=== PATIENT | female | born 1960 | race Caucasian/White ===

== ENCOUNTER 2016-10-12 06:46 | Emergency (ER) | payer BC ==
[2016-10-12 08:00] LABS: RBC URINE < 1 /hpf (0-3); URINE BACTERIA RARE (<OCC); URINE BILIRUBIN NEGATIVE (NEGATIVE); URINE BLOOD NEGATIVE (NEGATIVE); URINE COLOR Yellow (YELLOW); URINE GLUCOSE (UA) NORMAL (Normal); URINE KETONE NEGATIVE (NEGATIVE); URINE LEUKOCYTE ESTERASE NEG Leu/uL (Negative); URINE PROTEIN NEGATIVE (NEGATIVE); URINE UROBILINOGEN NORMAL mg/dL (0.2-1.0); WBC URINE < 1 /hpf (0-5)
[2016-10-12] MEDS ORDERED: Oxycodone/Acetaminophen 5/325 mg Tab PO STA (08:21)
--- NOTE | 2016-10-12 08:22 | RAD ---
PROCEDURE: Radiographs of the Lumbar Spine. HISTORY: pain COMPARISON: None available. FINDINGS: BONES: Alignment appears satisfactory. No listhesis. No acute displaced fracture identified. Mild degenerative changes including tiny anterior osteophytes. Facet hypertrophy. DISC SPACES: Unremarkable. OTHER FINDINGS: Atherosclerotic calcifications of the aorta. Right upper quadrant surgical clips. IMPRESSION: No acute displaced fracture or subluxation identified.
--- NOTE | 2016-10-12 08:40 | C.PDOC ---
Time Seen by Provider: 10/12/16 07:08 Chief Complaint (Nursing): Back Pain Past Medical History Vital Signs: Last Vital Signs Temp 98.5 F 10/12/16 07:06 Pulse 64 10/12/16 07:06 Resp 17 10/12/16 07:06 BP 125/75 10/12/16 07:06 Pulse Ox 99 10/12/16 07:06 - Medical History PMH: HTN, Hypercholesterolemia, Hypothyroidism Denies: Crohn's Disease, Diverticulitis, Gastritis, Gall Bladder Disease, HIV , Pancreatitis, Chronic Kidney Disease Surgical History: Back Surgery - [facility] Procedures COMMON DUCT EXPLORATION (07/17/14) ENDOSCOPIC REMOVAL OF STONE(S) FROM BILIARY TRACT (07/17/14) ENDOSCOPIC SPHINCTEROTOMY AND PAPILLOTOMY (07/17/14) INTRAOPER CHOLANGIOGRAM (07/17/14) LAPAROSCOPIC CHOLECYSTECTOMY (07/17/14) Family History: States: Unknown Family Hx - Social History Hx Tobacco Use: No Hx Alcohol Use: No Hx Substance Use: No - Immunization History Hx Tetanus Toxoid Vaccination: No Hx Influenza Vaccination: No Hx Pneumococcal Vaccination: No ED Course And Treatment O2 Sat by Pulse Oximetry: 99 Disposition - Disposition Referrals: Arpit Garcia MD [Primary Care Provider] - Forms: [employer] (T[place]isian)
--- NOTE | 2016-10-12 08:42 | C.PDOC ---
History Of Present Illness 55 year old female presents to the ED with complaints of right sided back pain exacerbated by movement, specifically when sitting, that radiates to the right leg for two days. Patient notes two days ago she lifted a heavy box and began to feel pain that evening. She denies trauma, history of kidney stones, taking medications today, urinary or bowel incontinence, dysuria, urinary frequency, or changes in sensation. Time Seen by Provider: 10/12/16 07:08 Chief Complaint (Nursing): Back Pain History Per: Patient History/Exam Limitations: no limitations Onset/Duration Of Symptoms: Days (2 days ) Current Symptoms Are (Timing): Still Present Quality Of Discomfort: "Pain" Previous Symptoms: None Associated Symptoms: None Exacerbating Factor(s): Movement, Sitting Recent travel outside of the [place]: No Past Medical History Reviewed: Historical Data, Nursing Documentation, Vital Signs Vital Signs: Last Vital Signs Temp 98.4 F 10/12/16 09:18 Pulse 68 10/12/16 09:18 Resp 16 10/12/16 09:18 BP 128/70 10/12/16 09:18 Pulse Ox 100 10/12/16 09:18 - Medical History PMH: HTN, Hypercholesterolemia, Hypothyroidism Surgical History: Back Surgery - [facility] Procedures COMMON DUCT EXPLORATION (07/17/14) ENDOSCOPIC REMOVAL OF STONE(S) FROM BILIARY TRACT (07/17/14) ENDOSCOPIC SPHINCTEROTOMY AND PAPILLOTOMY (07/17/14) INTRAOPER CHOLANGIOGRAM (07/17/14) LAPAROSCOPIC CHOLECYSTECTOMY (07/17/14) Family History: States: Unknown Family Hx - Social History Hx Tobacco Use: No Hx Alcohol Use: No Hx Substance Use: No - Immunization History Hx Tetanus Toxoid Vaccination: No Hx Influenza Vaccination: No Hx Pneumococcal Vaccination: No Review Of Systems Constitutional: Negative for: Fever, Chills Cardiovascular: Negative for: Chest Pain, Palpitations Respiratory: Negative for: Cough, Shortness of Breath Gastrointestinal: Negative for: Nausea, Vomiting, Abdominal Pain, Diarrhea Genitourinary: Negative for: Frequency, Incontinence Musculoskeletal: Positive for: Back Pain, Leg Pain Neurological: Negative for: Weakness, Numbness Physical Exam - Physical Exam Appears: Non-toxic, No Acute Distress Skin: Warm, Dry Head: Atraumatic, Normacephalic Eye(s): bilateral: Normal Inspection, EOMI Nose: Normal Oral Mucosa: Moist Neck: Normal ROM, Supple Chest: Symmetrical, No Deformity Cardiovascular: Rhythm Regular, No Murmur Respiratory: Normal Breath Sounds, No Rhonchi, No Wheezing Gastrointestinal/Abdominal: Soft, No Tenderness, No Distention, No Guarding, No Rebound Back: No CVA Tenderness, No Vertebral Tenderness, Paraspinal Tenderness (Right sided paralumbar tenderness ) Extremity: Normal ROM, No Tenderness, No Pedal Edema, No Calf Tenderness, Capillary Refill (good capillary refill, less than two seconds ), No Deformity, No Swelling Extremity: Bilateral: Normal Color And Temperature, Normal ROM Pulses: Left Dorsalis Pedis: Normal, Right Dorsalis Pedis: Normal Neurological/Psych: Oriented x3, Normal Speech, Normal Cognition, Normal Motor, Normal Sensation Gait: Steady ED Course And Treatment O2 Sat by Pulse Oximetry: 99 (room air ) Progress Note: Patient was given Toradol and Flexeril. On resassesment pateint noted minimal improvement. Percocet was ordered and given. Patient is resting comfortably, with improvement of back pain. Patient remains afebrile, with no bony tenderness, extremity numbness or weakness, or abdominal pain. Patient is ambulatory in the emergency department with no signs of discomfort. Patient was advised to follow up with physician/clinic in 1-2 days Reevaluation Time: 09:00 Reassessment Condition: Improved Disposition - Disposition Referrals: Arpit Garcia MD [Primary Care Provider] - Disposition: HOME/ ROUTINE Disposition Time: 08:50 Condition: STABLE Additional Instructions: Follow up with your primary medical doctor or clinic in 2-5 days for further evaluation. Take medications as prescribed. Return to the emergency department at any time if symptoms persist or worsen. Prescriptions: Cyclobenzaprine [Cyclobenzaprine HCl] 10 mg PO TID #20 tab Naproxen [Naprosyn] 1 tab PO BID PRN #20 tab PRN Reason: Pain Instructions: Acute Low Back Pain (ED) Forms: [employer] (Citizen Of [place]) - Clinical Impression Clinical Impression: Low back pain - Scribe Statement The provider has reviewed the documentation as recorded by the Scribe Whitney Guevara All medical record entries made by the Scribe were at my direction and personally dictated by me. I have reviewed the chart and agree that the record accurately reflects my personal performance of the history, physical exam, medical decision making, and the department course for this patient. I have also personally directed, reviewed, and agree with the discharge instructions and disposition.
[2016-10-12] MEDS ORDERED: Oxycodone/Acetaminophen 5/325 mg Tab ONE (08:44)
[2016-10-12 09:19] VITALS: BP 128/70; PULSE 68; RESP 16; TEMP 98.4
[2016-10-12 13:55] VITALS: O2SAT 99
== END 2016-10-12 09:18 | disposition home or self-care (01) ==
LOC: C.ER 06:46 → SUPCPDRO 06:46 → C.ER 09:18
DX: M54.5 Low back pain (principal)
CPT/HCPCS: 72100; 81001; 96372; 99284; J1885

== ENCOUNTER 2017-02-02 14:50 | Emergency (ER) | payer BC ==
[2017-02-02 14:56] VITALS: BP 122/79; PULSE 57; RESP 16; TEMP 97.9; O2SAT 96
--- NOTE | 2017-02-02 15:43 | C.PDOC ---
History Of Present Illness 56 yr old female presents to the ER with complaints of left ear pain and muffled hearing since morning. Patient states she is s/p cold which has improved. Denies fever, ear discharge, neck pain, headache or dizziness. Time Seen by Provider: 02/02/17 14:59 Chief Complaint (Nursing): ENT Problem History Per: Patient History/Exam Limitations: None Onset/Duration Of Symptoms: Days (1) Past Medical History Reviewed: Historical Data, Nursing Documentation, Vital Signs Vital Signs: Last Vital Signs Temp 97.9 F 02/02/17 14:53 Pulse 57 L 02/02/17 14:53 Resp 16 02/02/17 14:53 BP 122/79 02/02/17 14:53 Pulse Ox 96 02/02/17 15:43 - Medical History PMH: HTN, Hypercholesterolemia, Hypothyroidism Surgical History: Back Surgery - [facility] Procedures COMMON DUCT EXPLORATION (07/17/14) ENDOSCOPIC REMOVAL OF STONE(S) FROM BILIARY TRACT (07/17/14) ENDOSCOPIC SPHINCTEROTOMY AND PAPILLOTOMY (07/17/14) INTRAOPER CHOLANGIOGRAM (07/17/14) LAPAROSCOPIC CHOLECYSTECTOMY (07/17/14) Family History: States: No Known Family Hx - Social History Hx Tobacco Use: No Hx Alcohol Use: No Hx Substance Use: No - Immunization History Hx Tetanus Toxoid Vaccination: No Hx Influenza Vaccination: No Hx Pneumococcal Vaccination: No Review Of Systems Except As Marked, All Systems Reviewed And Found Negative. Constitutional: Negative for: Fever ENT: Positive for: Ear Pain (Left), Other ((+) Muffled hearing in left ear). Negative for: Ear Discharge Musculoskeletal: Negative for: Neck Pain Neurological: Negative for: Headache, Dizziness Physical Exam - Physical Exam Appears: Non-toxic, No Acute Distress Skin: Warm, Dry, No Rash Head: Atraumatic, Normacephalic Eye(s): bilateral: Normal Inspection, PERRL, EOMI Ear(s): Bilateral: Normal (No cerumen. No erythema. No drainage. No mastoid tenderness.) Oral Mucosa: Moist Throat: Normal, No Erythema, No Exudate, No Drooling Neck: Normal, Normal ROM, Supple Lymphatic: No Adenopathy Cardiovascular: Rhythm Regular, No Murmur Respiratory: Normal Breath Sounds, No Rales, No Rhonchi, No Stridor, No Wheezing Neurological/Psych: Oriented x3, Normal Speech, Normal Motor, Normal Sensation ED Course And Treatment O2 Sat by Pulse Oximetry: 96 (RA) Pulse Ox Interpretation: Normal Progress Note: PLAN: Sudafed PO. Disposition Counseled Patient/Family Regarding: Studies Performed, Diagnosis, Need For Followup, Rx Given - Disposition Referrals: Jamal Whitney MD [Staff Provider] - Disposition: HOME/ ROUTINE Disposition Time: 03:45 Condition: STABLE Additional Instructions: FOLLOW UP WITH ENT SPECIALIST WITHIN 1 WEEK USE MEDICATIONS DIRECTED RETURN TO ER IF SYMPTOMS WORSEN Prescriptions: Mometasone Furoate [Nasonex] 1 spray NS DAILY #1 spray.pump Pseudoephedrine [Sudafed] 60 mg PO Q6 PRN #12 tab PRN Reason: Nasal Congestion Forms: [employer] ([place]ian) Print Language: CYMRAES - POA Present On Arrival: None - Clinical Impression Clinical Impression: Left ear hearing loss - Scribe Statement The provider has reviewed the documentation as recorded by the Joseibe Annie León Provider Attestation: All medical record entries made by the Joseibjose were at my direction and personally dictated by me. I have reviewed the chart and agree that the record accurately reflects my personal performance of the history, physical exam, medical decision making, and the department course for this patient. I have also personally directed, reviewed, and agree with the discharge instructions and disposition.
== END 2017-02-02 16:06 | disposition home or self-care (01) ==
LOC: C.ER 14:50
DX: H91.92 Unspecified hearing loss, left ear (principal)

== ENCOUNTER 2017-03-11 09:45 | Emergency (ER) | payer BC ==
[2017-03-11 09:49] VITALS: BMI 37.1
[2017-03-11 09:52] VITALS: TEMP 97.8
--- NOTE | 2017-03-11 10:51 | RAD ---
HISTORY: COMPARISON: 07/09/2014. TECHNIQUE: Chest PA and lateral FINDINGS: LINES AND TUBES: None. LUNG AND PLEURA: There are increased streaky opacities in the lungs. The lungs are well inflated. No focal consolidation. HEART AND MEDIASTINUM: The heart is not enlarged. The hilar and mediastinal contours are within normal limits. SKELETAL STRUCTURES: The bony structures are within normal limits for the patient's age. VISUALIZED UPPER ABDOMEN: Normal. OTHER FINDINGS: None. IMPRESSION: Findings may represent reactive small airway disease/viral/ atypical bronchitis. No lobar pneumonia.
--- NOTE | 2017-03-11 10:58 | C.PDOC ---
History Of Present Illness 56-year-old female, presents to the emergency department with complaints of a sore throat and cough for the past three days that is associated with occasional wheezing and a mild generalized headache. Denies fevers, recent travel, back pain, dizziness, or any other associated symptoms. No other complaints at this time. Time Seen by Provider: 03/11/17 09:58 Chief Complaint (Nursing): Cough, Cold, Congestion History Per: Patient History/Exam Limitations: no limitations Onset/Duration Of Symptoms: Days Current Symptoms Are (Timing): Still Present Past Medical History Reviewed: Historical Data, Nursing Documentation, Vital Signs Vital Signs: Last Vital Signs Temp 97.8 F 03/11/17 09:49 Pulse 88 03/11/17 11:04 Resp 20 03/11/17 11:04 BP 121/74 03/11/17 11:04 Pulse Ox 100 03/11/17 13:49 - Medical History PMH: HTN, Hypercholesterolemia, Hypothyroidism Surgical History: Back Surgery - [facility] Procedures COMMON DUCT EXPLORATION (07/17/14) ENDOSCOPIC REMOVAL OF STONE(S) FROM BILIARY TRACT (07/17/14) ENDOSCOPIC SPHINCTEROTOMY AND PAPILLOTOMY (07/17/14) INTRAOPER CHOLANGIOGRAM (07/17/14) LAPAROSCOPIC CHOLECYSTECTOMY (07/17/14) Family History: States: No Known Family Hx - Social History Hx Tobacco Use: No Hx Alcohol Use: No Hx Substance Use: No - Immunization History Hx Tetanus Toxoid Vaccination: No Hx Influenza Vaccination: No Hx Pneumococcal Vaccination: No Review Of Systems Except As Marked, All Systems Reviewed And Found Negative. Constitutional: Negative for: Fever, Chills ENT: Positive for: Throat Pain Cardiovascular: Negative for: Chest Pain Respiratory: Positive for: Cough, Wheezing. Negative for: Shortness of Breath Gastrointestinal: Negative for: Vomiting Neurological: Positive for: Headache. Negative for: Weakness, Dizziness Physical Exam - Physical Exam Appears: Non-toxic, No Acute Distress, Other (speaking in full sentences) Skin: Warm, Dry, No Rash Head: Atraumatic, Normacephalic Eye(s): bilateral: Normal Inspection, PERRL Nose: Normal Oral Mucosa: Moist Lips: Normal Appearing Neck: Normal ROM, Supple Chest: Symmetrical Cardiovascular: Rhythm Regular, No Murmur Respiratory: Normal Breath Sounds, No Accessory Muscle Use, Other (intermittent cough) Extremity: Normal ROM Neurological/Psych: Oriented x3, Normal Speech ED Course And Treatment O2 Sat by Pulse Oximetry: 100 (on RA) Pulse Ox Interpretation: Normal Progress Note: Chest X-Ray ordered and reviewed. Patient treated with Tessalon for cough. Disposition Counseled Patient/Family Regarding: Studies Performed, Diagnosis, Need For Followup, Rx Given - Disposition Referrals: [facility] [Outside] Disposition: HOME/ ROUTINE Disposition Time: 11:00 Condition: STABLE Additional Instructions: FOLLOW UP WITH YOUR DOCTOR/CLINIC IN 1-2 DAYS USE MEDICATIONS NEEDED DRINK PLENTY OF FLUIDS AND GET REST RETURN TO ER IF SYMPTOMS WORSEN Prescriptions: Albuterol HFA [Ventolin HFA 90 mcg/actuation (8 g)] 0.09 mg IH Q4 PRN #1 puff PRN Reason: Wheezing Benzonatate [Tessalon Perles] 100 mg PO BID PRN #15 sgl PRN Reason: Cough Naproxen 375 mg PO BID PRN #20 tablet PRN Reason: pain Instructions: Upper Respiratory Infection (ED) Forms: [employer] ([place]ian) Print Language: SWEDISH - Clinical Impression Clinical Impression: Viral disease, Upper respiratory infection - Scribe Statement The provider has reviewed the documentation as recorded by the Scribe (Rafael Varela) All medical record entries made by the Scribe were at my direction and personally dictated by me. I have reviewed the chart and agree that the record accurately reflects my personal performance of the history, physical exam, medical decision making, and the department course for this patient. I have also personally directed, reviewed, and agree with the discharge instructions and disposition.
[2017-03-11 11:05] VITALS: BP 121/74; PULSE 88; RESP 20
[2017-03-11 13:39] VITALS: O2SAT 100
== END 2017-03-11 11:15 | disposition home or self-care (01) ==
LOC: C.ER 09:45
DX: J06.9 Acute upper respiratory infection, unspecified (principal); E03.9 Hypothyroidism, unspecified; E78.00 Pure hypercholesterolemia, unspecified; I10 Essential (primary) hypertension